=== PATIENT | male | born 2000 | race Caucasian/White ===

== ENCOUNTER 2019-08-25 00:35 | Emergency (ER) | payer MEDICARE, OTHER ==
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
--- NOTE | 2019-08-25 01:34 | XR ---
EXAMINATION TYPE: XR chest 2V DATE OF EXAM: 08/25/2019 COMPARISON: NONE HISTORY: Chest pain neck pain TECHNIQUE: Frontal and lateral views of the chest are obtained. FINDINGS: Heart and mediastinum are normal. Lungs are clear. Diaphragm is normal. There is no pleura l effusion or pneumothorax. Trachea is midline. IMPRESSION: Normal chest
[2019-08-25] MEDS ORDERED: ACET/COD 300 MG/30 MG STARTER PACK 6 TAB BTL PO STA (01:53)
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
[2019-08-25 02:11] VITALS: BP 132/72; PULSE 88; RESP 18; TEMP 98.6
== END 2019-08-25 02:06 | disposition home or self-care (01) ==
LOC: EC 00:35
DX: S06.0X1A Concussion with loss of consciousness of 30 minutes or less, initial encounter (principal); M54.2 Cervicalgia; F84.0 Autistic disorder; F17.200 Nicotine dependence, unspecified, uncomplicated; Z88.8 Allergy status to other drugs, medicaments and biological substances; Y04.0XXA Assault by unarmed brawl or fight, initial encounter; Y93.89 Activity, other specified
CPT/HCPCS: 70450; 71046; 72125; 99284